=== PATIENT | female | born 1975 | race Two or more races ===

== ENCOUNTER 2020-08-25 08:43 | Day surgery (SDC) | payer OTHER, SELFPAY ==
[~2020-08-25] VITALS: Ht 157.5 cm; Wt 79.4 kg
[2020-08-25] MEDS ORDERED: fentaNYL citrate 0.05 MG/ML VIAL ONE (11:17)
[2020-08-25] MEDS ORDERED: LIDOCAINE 2% 100 MG/5 ML UJET TP ONE ×2 (11:19→15:45)
[2020-08-25] MEDS ORDERED: MIDAZOLAM 5 MG/5 ML VIAL ONE (11:28)
[2020-08-25] MEDS ORDERED: MIDAZOLAM 2 MG/2 ML VIAL ONE (11:28)
[2020-08-25] MEDS ORDERED: fentaNYL citrate 0.05 MG/ML VIAL IVP ONE (15:40)
[2020-08-25] MEDS ORDERED: LIDOCAINE JELLY 2% 30 ML TUBE TP ONE (15:40)
[2020-08-25] MEDS ORDERED: MIDAZOLAM 2 MG/2 ML VIAL IVP ONE (15:40)
== END 2020-08-25 12:20 | disposition home or self-care (01) ==
LOC: MDS 08:43 → MMU 09:20 → MDS 12:20
PROVIDERS: ATTEND Internal Medicine Gastroenterology
DX: Z12.11 Encounter for screening for malignant neoplasm of colon (principal); K21.9 Gastro-esophageal reflux disease without esophagitis; R11.2 Nausea with vomiting, unspecified; F17.210 Nicotine dependence, cigarettes, uncomplicated; Z80.0 Family history of malignant neoplasm of digestive organs; Z20.828 Contact with and (suspected) exposure to other viral communicable diseases; Z79.899 Other long term (current) drug therapy
CPT/HCPCS: 43235; 45378; 81025; J2250; J3010; U0003